=== PATIENT | female | born 1965 | race Caucasian/White ===

== ENCOUNTER → 2020-07-31 07:51 | Outpatient (CLI) | payer SELFPAY ==
[2020-08-02 13:22] LABS: SARS-CoV-2 RNA PCR Negative
== END ==
PROVIDERS: PCP Physician Assistant Medical; Visit Provider Physician Assistant Medical
DX: Z20.822 Contact with and (suspected) exposure to COVID-19 (principal); R11.10 Vomiting, unspecified
CPT/HCPCS: C9803; U0003; U0005

== ENCOUNTER 2021-01-04 13:19 | Outpatient (RCR) | payer BC, SELFPAY ==
[2021-01-04] MEDS: ACETAMINOPHEN 325 MG TABLET 650 MG PO (13:52)
[2021-01-04] MEDS: diphenhydrAMINE HCl CAP 25 MG CAPSULE PO (13:53)
[2021-01-04] MEDS: FAMOTIDINE 20 MG TABLET PO (13:53)
[2021-01-04 14:12] VITALS: BP 116/66; PULSE 62; RESP 20; TEMP 36.1; O2SAT 97
[2021-01-04 15:42] VITALS: BP 112/62
--- NOTE | 2021-01-05 15:44 | PC.NURSE ---
Patient had no further development of symptoms after infusion. Patient had no post infusions symptoms.
== END 2021-01-04 16:14 | disposition home or self-care (01) ==
LOC: AMCINF 13:19
PROVIDERS: Referring Provider Family Medicine; Visit Provider Internal Medicine Hematology & Oncology
DX: Z23 Encounter for immunization (principal); U07.1 COVID-19; J44.9 Chronic obstructive pulmonary disease, unspecified
CPT/HCPCS: A9270; J7050; M0243

== ENCOUNTER → 2022-09-08 11:36 | Outpatient (CLI) | payer OTHER, SELFPAY ==
--- NOTE | ~2022-09-08 | XR_ITS ---
Clinical Indication: Asthma exacerbation PA and lateral views of the chest: Comparison: None Findings: Calcified right upper lobe granuloma noted. The lungs are otherwise clear, without evidence of focal consolidation or pleural effusion. Cardiomediastinal silhouette is within normal limits. B ones and soft tissues are unremarkable. Impression: No significant abnormality seen. Reviewed, dictated and finalized at location . Impression: No significant abnormality seen.
== END ==
PROVIDERS: PCP Nurse Practitioner Family; Visit Provider Nurse Practitioner Family
DX: J45.901 Unspecified asthma with (acute) exacerbation (principal)
CPT/HCPCS: 71046